=== PATIENT | female | born 1970 | race Caucasian/White ===

== ENCOUNTER 2018-06-20 15:43 | Emergency (ER) | payer SELFPAY ==
--- NOTE | 2018-06-20 16:03 | Emergency Department Report ---
Chief Complaint: Recheck/Abnormal Lab/Rx Stated Complaint: ANEMA/BLOOD LEVEL LOW Time Seen by Provider: 06/20/18 16:00 - HPI History of Present Illness: This is a 47 y.o. female who presents for evaluation of anemia. Patient received a call from PCP last week stating H/H was low and to follow up in ER. Patient states she feel fine and waiting until she had a ride to f/u. - Exam Vital Signs: Vital Signs 06/20/18 15:57 Temperature 97.9 F Pulse Rate 98 H Respiratory 18 Rate Blood Pressure 156/80 O2 Sat by Pulse 98 Oximetry MSE screening note: Focused history and physical exam performed. Due to findings the following was ordered: labs acc for further evaluation ED Disposition for MSE Condition: Stable
[2018-06-20 16:46] LABS: Basophils % (Auto) 0.3 % (0.0-1.8); Eosinophils # (Auto) 0.2 K/mm3 (0.0-0.4); Eosinophils % (Auto) 1.8 % (0.0-4.3); Hemoglobin 8.1 gm/dl (10.1-14.3); Lymphocytes # (Auto) 3.3 K/mm3 (1.2-5.4); Mean Corpuscular HGB Conc 30 % (30-34); Monocytes # (Auto) 0.7 K/mm3 (0.0-0.8); Monocytes % (Auto) 5.4 % (0.0-7.3); Platelet Count 408 K/mm3 (140-440); Red Cell Distribution Width 19.9 % (13.2-15.2)
[2018-06-20 16:47] LABS: Mean Corpuscular Hemoglobin 20 pg (28-32); Mean Corpuscular Volume 66 fl (79-97)
[2018-06-20 17:11] LABS: BUN/Creatinine Ratio 30; Blood Urea Nitrogen 18 mg/dL (7-17); Hemolysis Index 6
--- NOTE | 2018-06-20 18:34 | Emergency Department Report ---
ED General Adult HPI - General Chief complaint: Recheck/Abnormal Lab/Rx Stated complaint: ANEMA/BLOOD LEVEL LOW Time Seen by Provider: 06/20/18 16:00 Source: patient, conference interpreter Mode of arrival: Ambulatory Limitations: Language Barrier - History of Present Illness Initial comments: Patient is a 47-year-old female was being brought in for evaluation of her hemoglobin. Patient states that a week ago she saw her doctor for routine visit she was called earlier today to go immediately to the emergency department because her hemoglobin 6. At the time of the last primary care visit the patient states she was put on some type of vitamin she does not know what his vitamin was. Patient states she feels fine she denies any cough cold congestion and fevers chills nausea vomiting diarrhea abdominal pain chest pain shortness of breath or feelings of fatigue or coldness. Severity scale (0 -10): 0 - Related Data Previous Rx's Medication Instructions Recorded Last Taken Type Docusate Sodium [Colace] 100 mg PO BID PRN #60 capsule 06/20/18 Unknown Rx Ferrous Sulfate [Ferrous Sulfate 324 mg PO BID #60 tablet. 06/20/18 Unknown Rx 324 MG] Allergies Allergy/AdvReac Type Severity Reaction Status Date / Time No Known Allergies Allergy Unverified 06/20/18 15:47 ED Review of Systems ROS: Stated complaint: ANEMA/BLOOD LEVEL LOW Other details as noted in HPI Comment: All other systems reviewed and negative ED Past Medical Hx - Past Medical History Hx Diabetes: Yes Additional medical history: anemia - Surgical History Past Surgical History?: No - Social History Smoking Status: Never Smoker Substance Use Type: None - Medications Home Medications: Home Medications Medication Instructions Recorded Confirmed Last Taken Type Docusate Sodium [Colace] 100 mg PO BID PRN #60 capsule 06/20/18 Unknown Rx Ferrous Sulfate [Ferrous Sulfate 324 mg PO BID #60 tablet. 06/20/18 Unknown Rx 324 MG] ED Physical Exam - General Limitations: Language Barrier General appearance: alert, in no apparent distress - Head Head exam: Present: atraumatic, normocephalic - Eye Eye exam: Present: normal appearance - ENT ENT exam: Present: mucous membranes moist - Neck Neck exam: Present: normal inspection - Respiratory Respiratory exam: Present: normal lung sounds bilaterally. Absent: respiratory distress, wheezes, rales, rhonchi - Cardiovascular Cardiovascular Exam: Present: regular rate, normal rhythm. Absent: systolic murmur, diastolic murmur, rubs, gallop - GI/Abdominal GI/Abdominal exam: Present: soft, normal bowel sounds. Absent: distended, tenderness, guarding, rebound - Extremities Exam Extremities exam: Present: normal inspection - Back Exam Back exam: Present: normal inspection - Neurological Exam Neurological exam: Present: alert, oriented X3 - Psychiatric Psychiatric exam: Present: normal affect, normal mood - Skin Skin exam: Present: warm, dry, intact, normal color. Absent: rash ED Course Vital Signs 06/20/18 15:57 Temperature 97.9 F Pulse Rate 98 H Respiratory 18 Rate Blood Pressure 156/80 O2 Sat by Pulse 98 Oximetry ED Medical Decision Making - Lab Data Result diagrams: 06/20/18 16:24 06/20/18 16:24 - Medical Decision Making Patient's hemoglobin is 8.1. This is consistent with some anemia however the patient is asymptomatic and is not low enough for emergent blood transfusion. Patient started on iron supplements will be discharged home. Critical care attestation.: If time is entered above; I have spent that time in minutes in the direct care of this critically ill patient, excluding procedure time. ED Disposition Clinical Impression: Anemia Qualifiers: Anemia type: iron deficiency Iron deficiency anemia type: other iron deficiency Qualified Code(s): D50.8 - Other iron deficiency anemias Disposition: - TO HOME OR SELFCARE Is pt being admited?: No Does the pt Need Aspirin: No Condition: Stable Instructions: Iron Rich Diet (ED), Anemia (ED) Prescriptions: Docusate Sodium [Colace] 100 mg PO BID PRN #60 capsule PRN Reason: Constipation Ferrous Sulfate [Ferrous Sulfate 324 MG] 324 mg PO BID #60 tablet.dr Time of Disposition: 18:32
[2018-06-20 19:01] VITALS: BP 137/83
== END 2018-06-20 18:58 | disposition home or self-care (01) ==
LOC: EDBD → ED 15:43
DX: D50.8 Other iron deficiency anemias (principal)
CPT/HCPCS: 36415; 80048; 85025

== ENCOUNTER 2021-09-02 11:34 | Emergency (ER) | payer SELFPAY ==
[2021-09-02 13:34] LABS: Basophils % (Auto) 0.3 % (0.0-1.8); Eosinophils # (Auto) 0.2 K/mm3 (0.0-0.4); Eosinophils % (Auto) 1.8 % (0.0-4.3); Lymphocytes # (Auto) 2.5 K/mm3 (1.2-5.4); Lymphocytes % (Auto) 26.6 % (13.4-35.0); Mean Corpuscular HGB Conc 29 % (30-34); Monocytes # (Auto) 0.7 K/mm3 (0.0-0.8); Monocytes % (Auto) 7.8 % (0.0-7.3); Platelet Count 363 K/mm3 (140-440); Red Blood Count 4.53 M/mm3 (3.65-5.03); Red Cell Distribution Width 19.8 % (13.2-15.2)
[2021-09-02 13:39] LABS: Hematocrit 25.8 % (30.3-42.9); Hemoglobin 7.5 gm/dl (10.1-14.3); Mean Corpuscular Volume 57 fl (79-97)
[2021-09-02 13:44] LABS: Alanine Aminotransferase 24 units/L (7-56); Blood Urea Nitrogen 15 mg/dL (7-17); Calcium 9.4 mg/dL (8.4-10.2); Hemolysis Index 0
[2021-09-02 13:55] LABS: BUN/Creatinine Ratio 21
[2021-09-02] MEDS ORDERED: INSULIN REGULAR, HUMAN 100 UNITS/1 ML SUB-Q ONE (21:14)
[2021-09-03] MEDS ORDERED: INSULIN REGULAR, HUMAN 100 UNITS/1 ML IV ONE (00:16)
--- NOTE | 2021-09-03 03:12 | Emergency Department Report ---
ED General Adult HPI - General Chief complaint: Recheck/Abnormal Lab/Rx Stated complaint: SUGAR LEVEL AND IRON LEVELS Time Seen by Provider: 09/02/21 20:45 Source: patient Mode of arrival: Ambulatory Limitations: No Limitations - History of Present Illness Initial comments: 50-year-old female with past medical history of insulin dependent diabetes babs myles currently under the care of a primary care provider was seen in the office on 08/24/2021 where she received a full lab panel. During that time her hemoglobin was 399 she was advised to come to the emergency department to seek treatment. Also at that time her hemoglobin was around 6.2 and she also was advised to come to emergency department to get that evaluated and treated. Currently she is asymptomatic but presents with her doctor for a glucose check was no fever, chills, sweats but no hemoptysis no hematemesis medic easier, no nausea, no vomiting. Severity scale (0 -10): 0 Consistency: constant Improves with: none Worsens with: none Associated Symptoms: denies other symptoms - Related Data Previous Rx's Medication Instructions Recorded Last Taken Type Docusate Sodium [Colace] 100 mg PO BID PRN #60 capsule 06/20/18 Unknown Rx Ferrous Sulfate [Ferrous Sulfate 324 mg PO BID #60 tablet. 06/20/18 Unknown Rx 324 MG] Allergies Allergy/AdvReac Type Severity Reaction Status Date / Time No Known Allergies Allergy Verified 09/02/21 11:59 ED Review of Systems ROS: Stated complaint: SUGAR LEVEL AND IRON LEVELS Other details as noted in HPI Comment: All other systems reviewed and negative ED Past Medical Hx - Past Medical History Hx Diabetes: Yes Additional medical history: anemia - Social History Smoking Status: Never Smoker Substance Use Type: None - Medications Home Medications: Home Medications Medication Instructions Recorded Confirmed Last Taken Type Docusate Sodium [Colace] 100 mg PO BID PRN #60 capsule 06/20/18 Unknown Rx Ferrous Sulfate [Ferrous Sulfate 324 mg PO BID #60 tablet. 06/20/18 Unknown Rx 324 MG] ED Physical Exam - General Limitations: No Limitations General appearance: alert, in no apparent distress - Head Head exam: Present: atraumatic, normocephalic - Eye Eye exam: Present: normal appearance, PERRL, EOMI Pupils: Present: normal accommodation - ENT ENT exam: Present: normal exam, mucous membranes moist. Absent: TM's normal bilaterally - Neck Neck exam: Present: normal inspection, full ROM - Respiratory Respiratory exam: Present: normal lung sounds bilaterally. Absent: respiratory distress - Cardiovascular Cardiovascular Exam: Present: regular rate, normal rhythm. Absent: systolic murmur, diastolic murmur, rubs, gallop - GI/Abdominal GI/Abdominal exam: Present: soft, normal bowel sounds - Extremities Exam Extremities exam: Present: normal inspection - Back Exam Back exam: Present: normal inspection - Neurological Exam Neurological exam: Present: alert, oriented X3 - Psychiatric Psychiatric exam: Present: normal affect, normal mood - Skin Skin exam: Present: warm, dry, intact, normal color. Absent: rash ED Course Vital Signs 09/02/21 11:56 Temperature 98.7 F Pulse Rate 89 Respiratory 20 Rate Blood Pressure 160/66 [Right] O2 Sat by Pulse 97 Oximetry ED Medical Decision Making - Lab Data Result diagrams: 09/02/21 12:37 09/02/21 12:37 Critical care attestation.: If time is entered above; I have spent that time in minutes in the direct care of this critically ill patient, excluding procedure time. ED Disposition Clinical Impression: Hyperglycemia due to diabetes mellitus, Chronic anemia Disposition: 01 HOME / SELF CARE / HOMELESS Is pt being admited?: No Does the pt Need Aspirin: No Condition: Stable Instructions: Insulin Treatment for Diabetes Mellitus, Hyperglycemia, Hyperglycemia, [id number], Correction Insulin, Diabetes Mellitus Type 2 in Adults (ED) Referrals: PRIMARY CARE, [Primary Care Provider] - 3-5 Days
[2021-09-03 03:18] VITALS: BP 166/78
== END 2021-09-03 03:19 | disposition home or self-care (01) ==
LOC: ED 11:34
DX: E11.65 Type 2 diabetes mellitus with hyperglycemia (principal); D64.9 Anemia, unspecified; Z79.899 Other long term (current) drug therapy
CPT/HCPCS: 36415; 80053; 82962; 85025; 86850; 86900; 86901; 96372; 96374; 99283; Q9967; J1815